=== PATIENT | male | born 1960 | race Caucasian/White ===

== ENCOUNTER 2019-01-02 14:58 | Outpatient (CLI) | payer OTHER | END 2019-01-02 23:59 | disposition home or self-care (01) | LOC: STAR 14:58 | PROVIDERS: ATTEND Surgery | DX: Z01.818 Encounter for other preprocedural examination (principal); K40.20 Bilateral inguinal hernia, without obstruction or gangrene, not specified as recurrent | CPT/HCPCS: 36415; 80053; 85025; 85610; 93005 ==

== ENCOUNTER 2019-01-08 06:57 | Day surgery (SDC) | payer OTHER ==
[~2019-01-08] VITALS: Ht 170.2 cm; Wt 85.7 kg
[~2019-01-08 06:57] MED LIST: BUPIVACAINE/PF-EPI 0.5% 1:200K ONE; No meds per pt.
[2019-01-08] MEDS ORDERED: LACTATED RINGERS 1,000 ML IV SCH (07:21)
[2019-01-08 07:43] VITALS: BP 144/80
[2019-01-08] MEDS ORDERED: EPINEPHRINE 1 MG/ML, 1ML ONE (08:28)
[2019-01-08] MEDS ORDERED: BUPIVACAINE/PF 0.25% ONE (08:28)
[2019-01-08] MEDS ORDERED: MIDAZOLAM 1 MG/ML, 2ML ONE (08:31)
[2019-01-08] MEDS ORDERED: FENTANYL PF 250 MCG/5ML ONE (08:32)
[2019-01-08] MEDS ORDERED: FENTANYL PF 100 MCG/2ML IV PRN (09:00)
[2019-01-08] MEDS ORDERED: hydrALAzine 20 MG/ML, 1ML IV PRN (09:00)
[2019-01-08] MEDS ORDERED: HYDROmorphone 2 MG/ML, 1ML IVPush PRN (09:00)
[2019-01-08] MEDS ORDERED: DIAZEPAM 5 MG/ML, 2ML IVPush PRN (09:00)
[2019-01-08] MEDS ORDERED: ACETAMINOPHEN 325 MG TABLET PO PRN (09:00)
[2019-01-08] MEDS ORDERED: KETOROLAC 30 MG/1 ML IV PRN (09:00)
[2019-01-08] MEDS ORDERED: MEPERIDINE/PF 25MG/0.5ML IVPush PRN (09:00)
[2019-01-08] MEDS ORDERED: OXYcodone 5 MG/5 ML ORAL.SOL UDC PO PRN (09:00)
[2019-01-08] MEDS ORDERED: PROMETHAZINE 25 MG/ML, 1ML IV PRN (09:00)
[2019-01-08] MEDS ORDERED: LABETALOL 5MG/ML, 20ML IV PRN (09:00)
[2019-01-08] MEDS ORDERED: ALBUTEROL SULFATE 2.5 MG/3 ML NPPB PRN (09:00)
[2019-01-08] MEDS ORDERED: BUPIVACAINE/PF 0.25% INFIL ONE (09:02)
[2019-01-08] MEDS ORDERED: NEOSTIGMINE 1 MG/ML, 10ML ONE (11:00)
[2019-01-08] MEDS ORDERED: ONDANSETRON 2MG/ML, 2ML ONE ×2 (11:00)
[2019-01-08] MEDS ORDERED: DEXAMETHASONE 4 MG/ML, 1ML ONE ×2 (11:00)
[2019-01-08] MEDS ORDERED: PROPOFOL 10 MG/ML, 20ML ONE ×2 (11:00)
[2019-01-08] MEDS ORDERED: GLYCOPYRROLATE 0.2MG/1ML, 5ML ONE (11:00)
[2019-01-08] MEDS ORDERED: SUCCINYLCHOLINE 20 MG/ML, 10ML ONE (11:00)
[2019-01-08] MEDS ORDERED: ROCURONIUM 10MG/ML,5ML ONE (11:00)
[2019-01-08] MEDS ORDERED: CEFAZOLIN 1,000 MG ONE ×3 (11:00)
== END 2019-01-08 13:04 | disposition home or self-care (01) ==
LOC: OUT 06:57
PROVIDERS: ATTEND Surgery
DX: K40.00 Bilateral inguinal hernia, with obstruction, without gangrene, not specified as recurrent (principal); D17.6 Benign lipomatous neoplasm of spermatic cord; Z79.899 Other long term (current) drug therapy
CPT/HCPCS: 49507; C1781; J0171; J0690; J1100; J2250; J2405; J2704; J3010; J3490; J7120; J2710; J0330